=== PATIENT | male | born 1955 | race Caucasian/White ===

== ENCOUNTER → 2020-08-20 14:34 | Outpatient (BNVA) | payer OTHER, SELFPAY | PROVIDERS: Visit Provider Nurse Practitioner Family | DX: Z11.59 Encounter for screening for other viral diseases (principal); Z20.828 Contact with and (suspected) exposure to other viral communicable diseases | CPT/HCPCS: 87635 ==

== ENCOUNTER → 2021-07-01 12:17 | Outpatient (BNVA) | payer OTHER, SELFPAY | PROVIDERS: PCP Emergency Medicine Emergency Medical Services; Visit Provider Nurse Practitioner Family | DX: Z20.828 Contact with and (suspected) exposure to other viral communicable diseases (principal); J06.9 Acute upper respiratory infection, unspecified | CPT/HCPCS: 87635 ==

== ENCOUNTER 2021-07-02 07:58 | Outpatient (CLI) | payer OTHER, SELFPAY ==
--- NOTE | 2021-07-02 08:16 | CT_ITS ---
WS: [id number] CT HEAD WITHOUT AND WITH CONTRAST TECHNIQUE: Noncontrast and contrast-enhanced CT of the head. CLINICAL INFORMATION: MEMORY LOSS COMPARISON: None. DLP: 1984.[address] scans at [facility] use at least one of these dose optimization techniques: automat ed exposure control; mA and/or kV adjustment per patient size (includes targeted exams where dose is matched to clinical indication); or iterative reconstruction. FINDINGS: No evidence of intracranial hemorrhage or mass effect. Ventricular system and basal cisterns are momin nt. Mild small vessel changes. Moderate parenchymal volume loss. No abnormal intracranial enhancement. Mild mucosal thickening ethmoid air cells. Paranasal sinuses ar e otherwise well aerated. Mastoid air cells are well aerated. CT/CT head wo/w con [id number] IMPRESSION: 1. No evidence of intracranial hemorrhage or mass effect. 2. Mild small vessel changes with moderate parenchymal volume loss. 3. No abnormal intracranial enhancement. 4. No other significant findings.
[2021-07-02] MEDS: iohexol 300 mg/mL 100 mL Btl IV (08:34)
== END 2021-07-02 07:59 | disposition home or self-care (01) ==
PROVIDERS: PCP Emergency Medicine Emergency Medical Services; Visit Provider Emergency Medicine Emergency Medical Services
DX: R41.3 Other amnesia (principal)
CPT/HCPCS: 70470; Q9967

== ENCOUNTER → 2021-08-18 12:24 | Outpatient (BNVA) | payer OTHER, SELFPAY | PROVIDERS: PCP Emergency Medicine Emergency Medical Services; Visit Provider Nurse Practitioner | DX: G31.84 Mild cognitive impairment of uncertain or unknown etiology (principal); F07.81 Postconcussional syndrome | CPT/HCPCS: 96116; 99204 ==

== ENCOUNTER → 2022-06-24 08:04 | Outpatient (BNVA) | payer OTHER, SELFPAY | PROVIDERS: PCP Emergency Medicine Emergency Medical Services; Visit Provider Nurse Practitioner | DX: G31.84 Mild cognitive impairment of uncertain or unknown etiology (principal) | CPT/HCPCS: 96116; 99213; 99214 ==

== ENCOUNTER → 2022-07-06 12:47 | Outpatient (BNVA) | payer OTHER, SELFPAY | PROVIDERS: PCP Emergency Medicine Emergency Medical Services; Visit Provider Internal Medicine Cardiovascular Disease | DX: R07.9 Chest pain, unspecified (principal); I10 Essential (primary) hypertension; E78.5 Hyperlipidemia, unspecified; K21.9 Gastro-esophageal reflux disease without esophagitis | CPT/HCPCS: 99204 ==

== ENCOUNTER 2022-09-24 07:01 | Outpatient (CLI) | payer OTHER, SELFPAY ==
[2022-09-24 07:08] VITALS: BMI 31.8
--- NOTE | 2022-09-24 07:19 | ECG_ITS ---
[facility] Test Date: 2022-09-24 Pat Name: Souleymane Hutton Department: Room: Gender: Male Correctional Nurse: Sandra López : 1955 Requested By: Kerrie Choi Order Number: [id number] Emanuel MD: Kerrie Choi M.D. Interpretive Statements NAME OF STUDY: EXERCISE SESTAMIBI STRESS TEST INDICATION: Chest Pain Baseline blood pressure of 155/80 mm Hg, heart rate of 71 beats per minute and oxygen saturation of 96%. EKG showed sinus rhythm, normal axis with poor anterior R wave progression. The patient exercised for 8 minutes 59 seconds on a standard Erick protocol. Patient attained a maximum heart rate of 132 beats per minute(86% of the maximum predicted heart rate) with a blood pressure at the peak exercise of 172/66 mm Hg and oxygen saturation 94%. The EKG at the peak exercise revealed sinus tachycardia with 2-1/2 to 3 mm horizontal to downsloping ST depression in lead II, 3, aVF V3 to V6. Patient did not have any chest pain or any significant arrhythmis with the exercise. The study was terminated due to exertional fatigue. During the recovery phase, there were no new changes. Blood pressure at the end of the recovery phase was 174/82 mm Hg with a heart rate of 86 beats per minute and oxygen saturation 98%. CONCLUSION: 1. Ischemia EKG response to treadmill exercise with 2 and 1/2 to 3 mm horizontal to downsloping ST depression in inferior and anterolateral leads. 2. No exercise-induced chest pain or cardiac arrhythmia 3. Excellent exercise tolerance, attained a maximum of 10.2 METs. 4. Baseline hypertension with normal response to exercise. 5. Perfusion scan will be documented separately. Electronically Signed On 09-26-2022 12:34:20 RECOVERY OPERATOR by Kerrie Choi M.D. [id number]
--- NOTE | 2022-09-24 07:21 | NMCV_ITS ---
NM joe perf SPECT r/s* [id number] Souleymane Hutton Age: 66 Gender: M : 1955 Exam Date: 09/24/2022 07:21 Ordering Phys: Kerrie Choi MD ([email or web address]) Technologist: EDGAR López Exam Location: [facility] Indications: CHEST PAIN STRESS TEST Please see separate stress test report in [facility] for full findings IMAGE PROTOCOL Rest/Stress 1 Exercise Day Radiopharmaceutical Dose (mCi) Administration Site Administered by Rest: Tc-99m 9.8 IV EDGAR Isaacs Sestamibi Stress:Tc-99m 31.5 IV EDGAR Isaacs Sestamibi Rest: 24-Sep-2022 60 Discovery 630 Stress: 24-Sep-2022 30 Discovery 630 Radiopharmaceutical was injected at 85 % maximum heart rate. Images obtained in supine and prone position. SPECT RESULTS Technical Quality: Excellent Raw Data Analysis: Normal Image Corrections: No attenuation or motion correction applied Summed Stress Score: 18 Summed Rest Score: 5 Summed Difference Score: 13 PERFUSION FINDINGS Small sized perfusion abnormality of mild severity of mid to apical anterior and mid anteroseptal wall on rest images with reversibility noted in mid to apical anterior, mid to apical anterolateral, mid to apical anteroseptal hammond on stress images. FUNCTIONAL RESULTS (calculated via Gated SPECT) Stress Image LV EF (%): 53 Stress EDV (mL):96 TID: 1.27 Stress ESV (mL):45 FUNCTIONAL FINDINGS: The left ventricle is normal in size. Transient Ischemia Dilatation of 1.3. The left ventricular ejection fraction is mildly reduced with a value of 53%. There is hypokinesis of mid to apical anterior, septal and apical hammond. IMPRESSIONS 1. Medium sized reversible perfusion abnormality of mid to apical anterior, mid to apical anterolateral and mid to apical anteroseptal hammond. 2. This is suggestive of moderate area of skin of ischemia in left anterior descending artery territory. 3. The left ventricular ejection fraction is mildly reduced with a value of 53%. 3. There is hypokinesis of mid to apical anterior, septal and apical hammond. 4. EKG portion of the study will be reported separately. Kerrie Choi MD (Electronically Signed) Final Date: 25 September 2022 13:21 S
[2022-09-24 09:20] VITALS: BP 174/82; PULSE 85
== END 2022-09-24 07:02 | disposition home or self-care (01) ==
LOC: CDL 07:04
PROVIDERS: PCP Emergency Medicine Emergency Medical Services; Visit Provider Internal Medicine Cardiovascular Disease
DX: R07.9 Chest pain, unspecified (principal); I25.9 Chronic ischemic heart disease, unspecified
CPT/HCPCS: 36415; 78452; 93016; 93017; A9500

== ENCOUNTER 2022-10-13 11:46 | Observation (INO) | payer OTHER, SELFPAY ==
[2022-10-13] VITALS (34 sets, daily range): BP systolic 125–184; BP diastolic 65–104; PULSE 60–87; RESP 12–23; TEMP 36.8–37.1; O2SAT 90–98; BMI 33.1; BMI 33.8
--- NOTE | 2022-10-13 07:30 | XACV_ITS ---
Exam Room: 2 Ht: 163 cm Wt: 88 kg BSA: 2.02 m2 Gender: Male : 1955 Exam Priority: Routine Procedure(s): Procedure Description: Diagnostic procedure Diagnostic Cath Status: Elective Diagnostic Findings * 66-year-old man with past medical history of hypertension, hyperlipidemia, gastroesophageal reflux disease who underwent stress test for worsening chest discomfort. Stress test showed ischemia in left anterior descending/circumflex artery territory. * Angiography shows a right coronary dominant system. * Normal caliber left main with no significant disease. * Left circumflex artery with severe (90-95%)diffuse disease in mid to distal segments. Obtuse marginal branch with severe (80-90%) diffuse disease in proximal segment. Some right to left and left to left collaterals noted. * Proximal to mid LAD with severe 80 to 90% stenosis. Chronic total occlusion of mid left anterior descending artery. * Large right coronary artery with minor luminal irregularities. * Case was discussed and images were reviewed with Dr. Sow. Dr. Sow took over the case at this time. PCI Status: Elective PCI Indication: Other Interventional Findings * PROCEDURE DETAIL: We engaged left main artery with XB 3.0 guide catheter. IV heparin was administered to maintain ACT above 250 s. We advanced 0.014 run-through guidewire into left circumflex artery. It was dilated with 2.5 x 15 mm semicompliant balloon. We then advanced the wire into OM branch and predilated it with 2.5 x 15 mm semicompliant balloon. We then placed 2.75 x 30 mm resolute Bradly drug-eluting stent.This was postdilated with 3.0 x 12 mm NC balloon. At this time angiogram was performed that showed excellent stent expansion and no residual stenosis in left circumflex artery/ OM territory. We then turned our attention to proximal to mid LAD. Run-through guidewire was used to cross critical stenosis of LAD and was put in diagonal artery. We then predilated it with 2.25 x 15 mm semicompliant balloon. We then placed a 2.5 x 18 mm resolute Canby drug-eluting stent and proximal to mid LAD. There was some haziness seen distal to for stent. We then placed 2.75 x 15 mm resolute Bradly drug-eluting stent in mid LAD. Proximal stent was postdilated with 3.0 x 12 mm NC balloon. At this time final angiogram was performed that showed excellent stent expansion, no residual stenosis and GINA-3 flow. Guidewire and guide catheter were removed. Patient left the Dough Panner in a stable condition.. * Proximal Left Anterior Descendin% stenosis treated with a MDT R BRADLY 2.5X18 LUAN, AB TREK 2.25X15 RX BALLOON, and MDT NC EUPHORA RX [id number] BALLOON. 0% residual stenosis, GINA: 3 flow. * Mid Left Anterior Descendin% stenosis treated with a MDT R BRADLY 2.75X15 LUAN. 0% residual stenosis, GINA: 3 flow. * Proximal Circumflex to Mid Circumflex: 70% stenosis treated with a MDT R BRADLY 2.75X30 LUAN. 0% residual stenosis, GINA: 3 flow. * Mid Circumflex to Distal Circumflex: 90% stenosis treated with a Balloon. 0% residual stenosis, GINA: 3 flow. * First Obtuse Marginal Branch Segment: 70% stenosis treated with a MDT NC EUPHORA RX 3.92X70HD BALLOON. 0% residual stenosis, GINA: 3 flow. Conclusions 1. Severe multivessel coronary artery disease. 2. Severe proximal to mid LAD stenosis s/p successful revascularization with LUAN x2. SENIOR MICROSOFT CONSULTANT of mid LAD will be treated medically. 3. Severe mid to distal left circumflex artery stenosis s/p balloon angioplasty. Severe OM stenosis s/p PCI with LUAN x1. Recommendations * Return to inpatient for close monitoring and routine cath care. * Statin and aspirin 81mg lifelong, if tolerated. * Continue Plavix 75mg p.o. daily for at least one year. * High intensity statin therapy. * Outpatient cardiology follow up in 4 weeks. Interventional RX Recommendation: PCI w/o planned CABG Diagnostic RX Recommendation: PCI w/o planned CABG Anticoagulation: Heparin Ventriculography Ejection Fraction: 65.0 % LV EDP: 18 mmHg Left Ventriculography Findings: * Normal left ventricular size and systolic function. * EF 65 %, estimated. Pressures Phase:Rest AO : 149 / 74 ( 99 ) @ 9:29:00 AM 137 / 87 ( 111 ) @ 9:34:00 AM 174 / 76 ( 116 ) @ 9:42:00 AM 153 / 60 ( 95 ) @ 9:42:00 AM 151 / 75 ( 108 ) @ 9:53:00 AM 149 / 73 ( 107 ) @ 10:06:00 AM 115 / 48 ( 78 ) @ 10:26:00 AM 132 / 78 ( 102 ) @ 10:33:00 AM LV : 177 / -7 / 18 @ 9:41:00 AM 182 / -9 / 21 @ 9:42:00 AM 183 / -9 / 22 @ 9:42:00 AM Valves Phase:DefaultPhase AV : 9.0 @ 10:57:47 AM 9.0 @ 10:57:47 AM AV Mean Gradient: 14.0 @ 10:57:47 AM 14.0 @ 10:57:47 AM Clinical Evaluation EBL: 5mL-10mL Procedural Details Procedure Consent Obtained. Admit Source: Out Patient. Pre-Procedure Time Out. Identified patient by full name and date of as verbalized by the patient/guarantor. Does the consent match the physician's order: Yes. Accurate & Complete Informed Consent: Yes. Inpatient/Outpatient History & Physical on Chart: Yes. If H&P is completed, is and addenduem needed: No; If yes, is the addendum complete: N/A. Visualize and Verify Site with Patient/Guarantor: N/A. Relevant Radiology Images available: N/A. The risks, benefits, and alternatives of sedation and/or procedure were discussed by physician. The patient agrees to continue. Procedure started. [facility] Clinical Fraility Score: 3: Managing Well. Dough Panner Indications: Worsening Angina. Chest Pain Symptom Assessment: Typical Angina Symptoms. Cardiovascular Instability: No. Correct patient, site and procedure confirmed by cath team. Current diagnosis: Chest Pain. PERRLA. Strong, equal hand precision inspector bilaterally. Lungs clear x 5 lobes. IV Site on Arrival: 20 gauge in the right anticubital. Pre Procedural Pulses: bilateral radial was 3+. Pre Procedural Pulses: bilateral posterior tibial was 3+. Pre Procedural Pulses: bilateral dorsalis pedis was 3+. Oxygen started at 2liters/min via nasal canula. right groin was prepped with chloroprep then draped in the usual sterile fashion. right radial was prepped with chloroprep then draped in the usual sterile fashion. Physician notified. Baseline sample Acquired. HR: 72 BPM. Physician arrived. Physician scrubbed in. Immediate Pre-Procedure Time Out. Correct Patient: Yes; Correct Procedure: Yes; Correct Site: Yes; Correct Patient Position: Yes; Correct Supplies: Yes; Dried Flammable Prep: Yes; Blood Products Available: N/A;. Lidocaine 1% infiltrated to the right radial. Arterial access obtained. A 5 filipino TIG catheter in over wire. Multiple views taken of left coronary artery. Catheter redirected to the RCA. Multiple views taken of right coronary artery. attempt to cross the valve. dr sow called to view films. Catheter removed over the standard wire. A 6 filipino Angled Pig catheter in over wire. Physician review of cine films. EDP Sample taken: LV 177/-8,18; HR: 80 BPM; SpO2: 97%. LV gram performed in HERRERA @ 10 mL/second for a total of 30 mL. EDP Sample taken: LV 182/-10,21; HR: 79 BPM; SpO2: 97%. Pullback taken: LV 183/-10,22; AO 174/76(116); Mean: 14mmHg, Peak to Peak: 9mmHg, SEP: 24sec/min; HR: 76 BPM; SpO2: 97%. Catheter removed over the standard wire. sheath flused with heparinized saline. Physician arrived. dr santana srubbed out. sheath flushed with heparinized saline. Dr Sow scrubbed in. 6 filipino XB 3 guide catheter was inserted over the wire. Multiple views taken of left coronary artery. Runthrough guidewire was advanced through the guide catheter to lesion in the mid Circ. Inflation number : 1 A AB TREK 2.50X15 RX BALLOON was prepped and advanced across the Mid CX , then inflated to 8 AURY for 0:16 seconds. Inflation number: 2 The AB TREK 2.50X15 RX BALLOON was reinflated across the Mid CX, to 8 AURY for 0:12 seconds. Inflation number: 3 The AB TREK 2.50X15 RX BALLOON was reinflated across the Mid CX, to 12 AURY for 0:14 seconds. Results checked. Balloon out. Runthrough repositioned to OM. Balloon inserted to lesion in the OM. Inflation number: 1 The AB TREK 2.50X15 RX BALLOON was reinflated across the OM, to 12 AURY for 0:12 seconds. Inflation number: 2 The AB TREK 2.50X15 RX BALLOON was reinflated across the OM to 8 AURY for 0:11 seconds. Inflation number: 3 The AB TREK 2.50X15 RX BALLOON was reinflated across the OM to 12 AURY for 0:07 seconds. Balloon out. results checked. Inflation Number : 1 A MDT R BRADLY 2.75X30 LUAN -Lot Number#[id number] exp date10/20/2024 was prepped and advanced across the Prox CX1. The stent was deployed at 12 AURY for 0:25 seconds. Stent balloon and wire out. Inflation number : 1 A MDT NC EUPHORA RX 3.25J65HH BALLOON was prepped and advanced across the 1st Ob Kateryna , then inflated to 12 AURY for 0:10 seconds. Inflation number: 2 The MDT NC EUPHORA RX 3.38D90HR BALLOON was reinflated across the 1st Ob Kateryna, to 12 AURY for 0:05 seconds. Inflation number: 3 The MDT NC EUPHORA RX 3.95Z59OL BALLOON was reinflated across the 1st Ob Kateryna, to 12 AURY for 0:07 seconds. Results checked. Runthrough repositioned to diaganol. Wire out to reshape tip. Runthrough repositioned to diaganol. Balloon out. Inflation number : 3 A AB TREK 2.25X15 RX BALLOON was prepped and advanced across the Prox LAD , then inflated to 8 AURY for 0:11 seconds. Inflation number: 2 The AB TREK 2.25X15 RX BALLOON was reinflated across the Prox LAD, to 8 AURY for 0:21 seconds. results checked. Balloon out. Inflation Number : 1 A MDT R BRADLY 2.5X18 LUAN -Lot Number# [id number] exp date 09/15/2024 was prepped and advanced across the Prox LAD. The stent was deployed at 14 AURY for 0:22 seconds. Stent balloon and wire out. Inflation number: 4 The MDT NC EUPHORA RX 3.53P11HG BALLOON was reinflated across the Prox LAD, to 14 AURY for 0:17 seconds. Balloon out. Results checked. Wire out. Runthrough guidewire was advanced through the guide catheter to lesion in the diaganol. wire out to reshape tip. Runthrough guidewire was advanced through the guide catheter to lesion in the diaganol. Inflation Number : 1 A BRITNI Smith BRADLY 2.75X15 LUAN -Lot Number# [id number] exp date 04/23/2024 was prepped and advanced across the Mid LAD. The stent was deployed at 12 AURY for 0:24 seconds. Inflation number: 2 The stent balloon was then re-inflated across the Mid LAD to 14 AURY for 0:10 seconds. Stent balloon out over wire. Results checked. Wire out. Results checked. ACT drawn. Results 284 seconds. Therapeutic limits - pre-heparin administration 90-150 seconds and monitoring heparin during a vascular procedure >250 seconds. Guide catheter out. A TR Band was successful obtaining hemostatsis at the Right Radial artery insertion site. PERRLA. Strong, equal hand precision inspector bilaterally. No VTE prophylaxis required. Medication's Wasted: Lidocaine 1% = 2 mg. Medication's Wasted: Nitro = 49.8 mg. Medication's Wasted: Heparin = 3000 units. Total IV fluids: 100 mL. PCI Indication: New Onset Angina. Post-op diagnosis: multi vessel stent placement. Complications: none. Estimated blood loss: 5mL-10mL. Responsiveness - Normal response to verbal stimuli; alert and oriented, PERRLA. Airway - Unaffected, no intervention required; spontaneous ventilation. Circulation: W/N/L, pulses unchanged. Nausea/Vomiting: No. Procedure completed. Patient transferred by wheelchair to CPRU. Vital chart was stopped. Access Site Site: Right Radial artery Sheath Size: 6 Fr Hemostasis Method: TR Band Hemostasis Success: Successful Procedure Medications Start: 9:21 AM Stop: 9:21 AM Medication: Versed Amount: 1 mg Route: I.V. Start: 9:21 AM Stop: 9:21 AM Medication: Fentanyl Amount: 50 mcg Route: I.V. Start: 9:24 AM Stop: 9:24 AM Medication: Versed Amount: 1 mg Route: I.V. Start: 9:24 AM Stop: :24 AM Medication: Fentanyl Amount: 50 mcg Route: I.V. Start: 9:26 AM Stop: 9: AM Medication: Benadryl Amount: 25 mg Route: I.V. Start: 9: AM Stop: : AM Medication: Nitrogylcerin Amount: 200 mcg Route: I.A. Start: 9:29 AM Stop: 9:29 AM Medication: Heparin Amount: 5000 units Route: I.V. Start: 10:00 AM Stop: 10:00 AM Medication: Heparin Amount: 4000 units Route: I.V. Start: 10:06 AM Stop: 10:06 AM Medication: Heparin Amount: 2000 units Route: I.V. Start: 10:07 AM Stop: 10:07 AM Medication: Benadryl Amount: 25 mg Route: I.V. Start: 10:17 AM Stop: 10:17 AM Medication: Heparin Amount: 1000 units Route: I.V. Start: 10:31 AM Stop: 10:31 AM Medication: Nitrogylcerin Amount: 200 mcg Route: I.C. Start: 10:31 AM Stop: 10:31 AM Medication: Heparin Amount: 1000 units Route: I.V. Start: 10:47 AM Stop: 10:47 AM Medication: Plavix Amount: 300 mg Route: P.O. I, the attending physician, have reviewed and verified all procedure medications. Yes, all medications given per verbal order History/Risk Factors Hypertension: Yes Dyslipidemia: Yes Peripheral Arterial Disease (PAD): No Myocardial Infarction (WI): No Obesity: No Tobacco Use: Never Prior Interventions PCI: No CABG: No Valve Surgery: No Report Signatures Interventional Workflow Finalized by Milton Sow MD on 10/26/2022 05:35 PM Diagnostic Workflow Finalized by Kerrie Santana MD on 10/22/2022 02:28 PM
[2022-10-13 07:49] LABS: Basophils % 0.4 %; Eosinophils # 0.2 10^3/uL (0.0-0.8); Eosinophils % 3.4 %; Hematocrit 46.2 % (42.0-52.0); Hemoglobin 15.9 g/dL (11.7-16.6); Lymphocytes # 2.2 10^3/uL (0.8-4.8); Lymphocytes % 31.1 %; Mean Corpuscular HGB Conc 34.4 g/dL (30.0-36.0); Mean Corpuscular Hemoglobin 32.6 pg (28.0-34.0); Mean Corpuscular Volume 94.9 fl (80-94); Mean Platelet Volume 9.8 fL (7.4-10.4); Monocytes # 0.7 10^3/uL (0.2-0.9); Monocytes % 9.6 %; Neutrophils # 3.81 10^3/uL (1.8-7.7); Neutrophils % 54.8 %; Nucleated Red Blood Cells % 0 %; Platelet Count 188 10^3/cmm (130-400); Red Blood Count 4.87 10^6/uL (4.1-5.3); Red Cell Distribution Width 12.4 % (12.1-15.1)
[2022-10-13 08:06] LABS: Anion Gap 15.9 (5-19); Blood Urea Nitrogen 15 mg/dL (8-23); Carbon Dioxide 25 mmol/L (22-29); Chloride 101 mmol/L (98-107); Glomerular Filtration Rate 83.9 mL/min (90-130); Glucose 99 mg/dL (65-115); Osmolality Calculated 287 mOsm/kg (285-295); Potassium 3.9 mmol/L (3.5-5.1); Sodium 138 mmol/L (136-145)
[2022-10-13] MEDS: diphenhydrAMINE 50 mg Capsule PO (08:20)
--- NOTE | 2022-10-13 09:19 | P.HP_ITS ---
Same Day Surgery H&P Indication for Procedure/HPI DATE OF PROCEDURE: October 13, 2022 CHIEF COMPLAINT/INDICATIONFOR SURGICAL PROCEDURE: Chest pain PREOP DIAGNOSIS: Chest pain, abnormal stress test PLANNED PROCEDURE: Operation Date: 10/13/22 08:[address] [facility] w/wo [id number] R07.9,R94.39(Left) - Kerrie Choi MD 66 year old male with PMHx of HTN, GERD, HLD, h/o COVID-19 PNA in . He was initially seen in office with complains of chest pain with exertion. He used to be pretty active but recently has been feeling somewhat better. Mother with h/o RHD. Labs (12/30/21): LDL 175, Tg 199, HDL 46, TC 260, Cr-1.19, potassium 4.2, ALT 30, AST 46. EKG showed sinus rhythm, LAFB. Poor anterior R wave progression. Stress test with ischemia in LAD/LCx artery territory. He is here for outpatient [facility] for worsening chest pains and abnormal stress test. Medications/Allergies* Home Medications Medication Instructions Recorded Confirmed Type cholecalciferol (vitamin D3) 250 250 mcg PO DAILY 07/01/21 10/13/22 History mcg (10,000 unit) capsule hydrochlorothiazide 25 mg tablet 25 mg PO DAILY 07/01/21 10/13/22 History lisinopril 20 mg tablet 20 mg PO DAILY 07/01/21 10/13/22 History Allergies/Adverse Reactions Allergy/AdvReac Type Severity Reaction Status Date / Time No Known Allergies Allergy Verified 10/13/22 08:49 Current Medications: Generic Name Dose Route Start Last Admin Trade Name Freq PRN Reason Stop Dose Admin Sodium Chloride 1,000 mls @ 50 mls/hr 10/13/22 07:30 10/13/22 07:30 Sodium Chloride 0.9% IV 10/14/22 03:29 Not Given .Q20H ONE Pertinent History/Comorbid Conditions* Medical History (Updated 07/06/22 @ 13:10 by Kerrie Choi MD) Chronic traumatic encephalopathy GERD (gastroesophageal reflux disease) HTN (hypertension) with goal to be determined Hyperlipidemia Surgical History (Updated 07/06/22 @ 13:10 by Kerrie Choi MD) S/P ear surgery S/P hernia surgery Family History (Updated 07/06/22 @ 13:04 by Melody Helm RN) Mother CAD (coronary artery disease) Mother Rheumatic fever Mother Social History Smoking and tobacco status: never smoked Alcohol intake: current History of recent travel: No Pertinent Exam Findings alert, oriented x 3, clear to auscultation bilaterally and regular rate & rhythm Conscious Sedation Assessment PATIENT ASSESSED PRIOR TO SEDATION, WITH NO CHANGE NOTED: Yes AIRWAY EVAL/ANESTHESIA PLAN: normal airway, ASA III, Monitored Anesthesia, Local Anesthesia, Risks, benefits & alternatives of sedation and/or procedure discussed and Patient agrees to continue as planned Recommendations Surgery/Procedure today Coding Level of Care Code Acute Cloth Roll Winder for Wellington Bueno
--- NOTE | 2022-10-13 11:35 | SUR.PHASEI ---
Received patient back from the wheelabrator operator via wheelchair s/p PCI. Patient ambulated to the cot. Alert and oriented x 3. Significant other and Dr. Sow at bedside. Automobile Seat Cover Installer placed and vital signs obtained. TR band intact to the right wrist with no bleeding or hematoma noted. palpable radial pulse. No other assessment changes noted from pre cath assessment. Will transfer to CSU room 103 shortly.
--- NOTE | 2022-10-13 11:52 | SUR.PHASEI ---
Patient to room 103 via wheelchair. Bedside report to LUL Hearn.
[2022-10-13] MEDS: sodium chloride 0.9% 1,000 ML 100 ML IV ×2 (13:33→21:31)
[2022-10-13] MEDS: amlodipine 5 mg Tablet PO (18:12)
[2022-10-14 03:25] LABS: Basophils % 0.4 %; Eosinophils # 0.2 10^3/uL (0.0-0.8); Eosinophils % 2.5 %; Hematocrit 39.4 % (42.0-52.0); Hemoglobin 13.5 g/dL (11.7-16.6); Lymphocytes # 1.9 10^3/uL (0.8-4.8); Lymphocytes % 27.7 %; Mean Corpuscular HGB Conc 34.3 g/dL (30.0-36.0); Mean Corpuscular Hemoglobin 32.7 pg (28.0-34.0); Mean Corpuscular Volume 95.4 fl (80-94); Mean Platelet Volume 9.6 fL (7.4-10.4); Monocytes # 0.7 10^3/uL (0.2-0.9); Monocytes % 10.4 %; Neutrophils # 3.98 10^3/uL (1.8-7.7); Neutrophils % 58.4 %; Nucleated Red Blood Cells % 0 %; Platelet Count 177 10^3/cmm (130-400); Red Blood Count 4.13 10^6/uL (4.1-5.3); Red Cell Distribution Width 12.4 % (12.1-15.1); White Blood Count 6.8 10^3/uL (4.0-10.0)
[2022-10-14 03:44] LABS: Anion Gap 11.9 (5-19); Blood Urea Nitrogen 17 mg/dL (8-23); Calcium 9.1 mg/dL (8.5-10.5); Carbon Dioxide 25 mmol/L (22-29); Chloride 107 mmol/L (98-107); Glomerular Filtration Rate 83.9 mL/min (90-130); Glucose 102 mg/dL (65-115); Osmolality Calculated 292 mOsm/kg (285-295); Potassium 3.9 mmol/L (3.5-5.1); Sodium 140 mmol/L (136-145)
[2022-10-14 03:52] VITALS: BP 139/63; PULSE 65; RESP 14; TEMP 36.3; O2SAT 96
[2022-10-14 05:20] VITALS: PULSE 62
[2022-10-14 07:14] VITALS: BP 116/52; PULSE 68; RESP 15; TEMP 37.1; O2SAT 96
--- NOTE | 2022-10-14 08:35 | PC.CHAP ---
Pastoral Care Encounter/Spiritual Assessment Type of Contact [] Declined transportation director visit [] Patient/Family/Request visit [] Outpatient visit [] Follow-up visit [] Physician referral [] Code/Alert [x] Routine visit [] Staff referral [] Actively dying [] Patient sleeping [] Family support [] [] Out of room [] Palliative care [] [] Receiving care in room [] Pre-surgical visit [] Trauma [] Long length of stay [] ICU visit [] Other: Relational/Emotional Strength [x] Patient feels connected with others/family/visitors/staff [] Distress [] Loneliness/isolation [] Abandonment Spirituality of Patient [] Person of Radha [] Attends Hinduism of their Radha [] Believes in Prayer [] Reads Bible or Yazdanism materials [x] There are Spiritual issues to be addressed Bond Analyst Interventions [] Prayer [x] Active listening [x] Non-anxious presence [x] Spiritual/emotional support [] Crisis/trauma care [] Spiritual counseling [] Bereavement support [] Provided bereavement packet [] Provided Bible/devotional materials [] Provided toy/stuffed animal, coloring book to patient or family member [] Provided Communion [] Anointing/[place] [] Salvation [x] Completed spiritual assessment [] Other: Impact on Illness or Injury [] Angry [] Fearful [] Anxious [] Often cries [] Exhaustion [] Unable to work [] Unable to attend druze [] Unable to walk/stand [] Unable to read [] Unable to drive [] Unable to eat/drink [] Unable to sleep [] Unable to be with family [] Patient intubated [] Other: Summary Pt's SO was present Time spent with patient 10m
--- NOTE | 2022-10-14 08:47 | PM.DCS ---
Discharge Providers Date of Admission: 10/13/22 11:46 Date of Discharge: October 14, 2022 Attending Provider at Admission: Kerrie Choi MD Attending Provider at Discharge: Kerrie Choi MD Primary Care Provider: Lance Orozco DO Reason for Visit Reason for Visit: R07.9 chest pain, unspecified Brief History: 66 year old male with PMHx of HTN, GERD, HLD, h/o COVID-19 PNA in . He was initially seen in office with complains of chest pain with exertion. He used to be pretty active but recently has been feeling somewhat better. Mother with h/o RHD. Labs (12/30/21): LDL 175, Tg 199, HDL 46, TC 260, Cr-1.19, potassium 4.2, ALT 30, AST 46. EKG showed sinus rhythm, LAFB. Poor anterior R wave progression. Stress test with ischemia in LAD/LCx artery territory. He was admitted for outpatient LHC for worsening chest pains and abnormal stress test. Hospital Course Hospital Course He underwent LHC via right radial access and was found to have [employer] mid LAD and severe disease in mid to distal LCX and OM branch. He underwent 2 LUAN's to px to mid LAD and another LUAN to OM and balloon angioplasty of mid to distal LCx. He tolerated the procedure well. Few episodes of bradycardia noted on telemetry with HR dropping to 48 during night. Advised to keep BP/HR log. Physical Exam Narrative: GENERAL: Averagely built and averagely nourished in no acute distress HEENT: Extraocular movement intact. Pupils equal round reactive to light. No pallor or icterus. NECK: central trachea, [] JVD, [] abdominojugular reflex. No carotid bruit. CARDIOVASCULAR SYSTEM: S1-S2 regular. No S3 or S4 present. [No murmur rubs or gallops.] RESPIRATORY SYSTEM: Chest clear to auscultation. No wheezes rhonchi or rubs heard. [] No use of accessory muscles. ABDOMEN: Soft, nontender and nondistended. Normal bowel sounds present. No hepatosplenomegaly appreciated. [] EXTREMITIES: No cyanosis or clubbing. [No edema]. No signs of chronic venous insufficiency. [employer] M[employer] WORKER: Patient is alert oriented ?3. No focal neurological deficits. Cranial nerves intact. [] SKIN: Normal turgor and temperature. No breakdown, rash or nail changes noted. [] PSYCH: Normal insight and judgment. No suicidal or homicidal ideations. Discharge Data Studies Completed and Pending Pending at discharge Category Date Time Status OPERATING ROOM TECHNICIAN request for service Routine Exams 10/13/22 07:30 Taken Laboratory Results WBC 6.8 10^3/uL (4.0-10.0) 10/14/22 03:01 RBC 4.13 10^6/uL (4.1-5.3) 10/14/22 03:01 Hgb 13.5 g/dL (11.7-16.6) 10/14/22 03:01 Hct 39.4 % (42.0-52.0) L 10/14/22 03:01 MCV 95.4 fl (80-94) H 10/14/22 03:01 MCH 32.7 pg (28.0-34.0) 10/14/22 03:01 MCHC 34.3 g/dL (30.0-36.0) 10/14/22 03:01 RDW 12.4 % (12.1-15.1) 10/14/22 03:01 Plt Count 177 10^3/cmm (130-400) 10/14/22 03:01 MPV 9.6 fL (7.4-10.4) 10/14/22 03:01 Neut % (Auto) 58.4 % 10/14/22 03:01 Lymph % (Auto) 27.7 % 10/14/22 03:01 [place] % (Auto) 10.4 % 10/14/22 03:01 Eos % (Auto) 2.5 % 10/14/22 03:01 Baso % (Auto) 0.4 % 10/14/22 03:01 Neut # (Auto) 3.98 10^3/uL (1.8-7.7) 10/14/22 03:01 Lymph # (Auto) 1.9 10^3/uL (0.8-4.8) 10/14/22 03:01 Gladwin # (Auto) 0.7 10^3/uL (0.2-0.9) 10/14/22 03:01 Eos # (Auto) 0.2 10^3/uL (0.0-0.8) 10/14/22 03:01 Baso # (Auto) 0.0 10^3/uL (0.0-0.1) 10/14/22 03:01 Nucleated RBC % (auto) 0 % 10/14/22 03:01 Nucleated RBCs # 0.0 /100WBC 10/14/22 03:01 Sodium 140 mmol/L (136-145) 10/14/22 03:01 Potassium 3.9 mmol/L (3.5-5.1) 10/14/22 03:01 Chloride 107 mmol/L (98-107) 10/14/22 03:01 Carbon Dioxide 25 mmol/L (22-29) 10/14/22 03:01 Anion Gap 11.9 (5-19) 10/14/22 03:01 BUN 17 mg/dL (8-23) 10/14/22 03:01 Creatinine 0.9 mg/dL (0.7-1.2) 10/14/22 03:01 GFR Calculation 83.9 mL/min (90-130) L 10/14/22 03:01 Glucose 102 mg/dL (65-115) 10/14/22 03:01 Calculated Osmolality 292 mOsm/kg (285-295) 10/14/22 03:01 Calcium 9.1 mg/dL (8.5-10.5) 10/14/22 03:01 Vitals Last Vital Signs Temp 98.8 F 10/14/22 07:14 Pulse 68 10/14/22 07:14 Resp 15 10/14/22 07:14 BP 116/52 10/14/22 07:14 Pulse Ox 96 10/14/22 07:14 O2 Del Method 10/14/22 07:14 Discharge Plan Discharge Patient Disposition: Home Condition: Stable Prescriptions: New amlodipine 5 mg Tablet 5 mg PO DAILY Qty: 30 3RF Continued lisinopril 20 mg tablet 20 mg PO DAILY cholecalciferol (vitamin D3) 250 mcg (10,000 unit) capsule 250 mcg PO DAILY galantamine 8 mg capsule,ext rel. pellets 24 hr 8 mg PO QAM Qty: 30 0RF Rx Instructions: administer with breakfast aspirin [Adult Low Dose Aspirin] 81 mg tablet,delayed release (DR/EC) 81 mg PO DAILY Qty: 90 0RF nitroglycerin [Nitrostat] 0.4 mg tablet, sublingual 0.4 mg sublingual Q5M PRN (Reason: chest pain) Qty: 25 0RF Rx Instructions: do not exceed 3 doses per episode atorvastatin 40 mg tablet 40 mg PO DAILY Qty: 90 3RF isosorbide mononitrate 30 mg tablet extended release 24 hr 30 mg PO DAILY Qty: 90 3RF clopidogrel 75 mg tablet 75 mg PO DAILY Qty: 90 2RF Discontinued hydrochlorothiazide 25 mg tablet 25 mg PO DAILY Discharge Orders: Discharge Order (Routine); Ordered 10/14/22 Ordered By: Kerrie Choi Other Ambulatory Orders: Basic Metabolic Panel (Routine) Timeframe: 1 Week Facility: [facility] - Location: Lab - Main Lab Ordered By: Kerrie Choi Referrals: Kristel Christian FNP [Nurse Practitioner] - 10/22/22 10:00 am (Please follow-up with Kristel Christian on Oct.22 at 10:00A.M. If you have any questions or need to reschedule. Please call ) Kerrie Choi MD [Physician] - 2 months (During your appointment with Kristel Christian you will be scheduled for follow-up with Dr. Choi. ) Discharge Diet: Cardiac Discharge Activity: Limit activity as instructed Patient Instructions: Amlodipine (By mouth), Coronary Angioplasty (DC), Opioid Safety, Post Angiogram Home Care Instructions Activity Restrictions/Additional Instructions: Do not lift anything more than 5 lbs for 1 week. Keep the site dry and clean Take medications as prescribed and follow up as scheduled. Blood pressure and heart rate log x 2 weeks Discharge Attestations Time Spent in Discharge Care*: greater than 30 min Specific Discharge Activities: educating patient, educating and/or supporting family/caregiver, documenting/other paperwork and evaluating patient/reviewing data Status at Discharge: Cognitive status at discharge: cognitively intact, Behavioral status at discharge: cooperative, Functional status at discharge: independent ambulation, Overall status at discharge: patient is back to baseline Quality Metrics Clinical Quality Measures [ No reported AMI, CVA or VTE this stay] Coding Level of Care Code Acute Chg FW DC note
[2022-10-14] MEDS: aspirin 81 mg EC Tablet PO (09:19)
[2022-10-14] MEDS: atorvastatin 40 mg Tablet PO (09:20)
[2022-10-14] MEDS: amlodipine 5 mg Tablet PO (09:20)
[2022-10-14] MEDS: lisinopril 20 mg Tablet PO (09:20)
[2022-10-14] MEDS: clopidogrel 75 mg Tablet PO (09:20)
[2022-10-14] MEDS: isosorbide mononitrate ER 30 mg Tablet PO (09:20)
[2022-10-14 10:22] VITALS: BP 116/52; PULSE 68; RESP 15; TEMP 37.1; O2SAT 96
--- NOTE | 2022-10-14 10:26 | PC.NURSE ---
Patient educated on post angiogram instructions, follow up appointments and medications. IV removed. Patient vs stable upon departure.
== END 2022-10-14 10:27 | disposition home or self-care (01) ==
LOC: CSU 11:46
PROVIDERS: Internal Medicine; Admitting Provider Internal Medicine Cardiovascular Disease; PCP Emergency Medicine Emergency Medical Services; Visit Provider Internal Medicine Cardiovascular Disease
DX: I25.10 Atherosclerotic heart disease of native coronary artery without angina pectoris (principal); R07.9 Chest pain, unspecified; R94.39 Abnormal result of other cardiovascular function study; Z86.16 Personal history of COVID-19; I10 Essential (primary) hypertension; K21.9 Gastro-esophageal reflux disease without esophagitis; E78.5 Hyperlipidemia, unspecified
CPT/HCPCS: 36415; 80048; 85025; 85347; 93458; 96361; 96365; 99152; 99153; C1725; C1769; C1874; C1887; C1894; C9600; G0378; J1200; J1644; J2250; J3010; J3490; J7030; Q0163; Q9967

== ENCOUNTER → 2022-10-22 11:12 | Outpatient (BNVA) | payer OTHER, SELFPAY | PROVIDERS: PCP Emergency Medicine Emergency Medical Services; Visit Provider Nurse Practitioner Family | DX: I25.10 Atherosclerotic heart disease of native coronary artery without angina pectoris (principal); I10 Essential (primary) hypertension | CPT/HCPCS: 36415; 80048; 99214 ==

== ENCOUNTER → 2023-01-11 10:03 | Outpatient (BNVA) | payer OTHER, SELFPAY | PROVIDERS: PCP Emergency Medicine Emergency Medical Services; Visit Provider Nurse Practitioner Family | DX: I25.10 Atherosclerotic heart disease of native coronary artery without angina pectoris (principal); I10 Essential (primary) hypertension | CPT/HCPCS: 99214 ==

== ENCOUNTER → 2023-07-05 10:29 | Outpatient (BNVA) | payer OTHER, SELFPAY | PROVIDERS: PCP Emergency Medicine Emergency Medical Services; Visit Provider Internal Medicine Cardiovascular Disease | DX: I25.10 Atherosclerotic heart disease of native coronary artery without angina pectoris (principal); I10 Essential (primary) hypertension; E78.5 Hyperlipidemia, unspecified | CPT/HCPCS: 99214 ==

== ENCOUNTER 2023-09-10 07:35 | Outpatient (CLI) | payer OTHER, SELFPAY ==
--- NOTE | 2023-09-10 07:42 | CT_ITS ---
WS: [id number] CT LUMBAR SPINE TECHNIQUE: Noncontrast CT of the lumbar spine with coronal and sagittal reformatted images. CLINICAL INFORMATION: Pain COMPARISON: None. DLP: 789.[address] scans at [facility] use at least one of these dose optimization techniques: automated e xposure control; mA and/or kV adjustment per patient size (includes targeted exams where dose is matc hed to clinical indication); or iterative reconstruction. FINDINGS: Mild lumbar curve. No acute compression. Moderate spondylitic changes lumbar spine. Anterior hypertro phic changes lower thoracic and upper lumbar spine. Disc osteophyte complexes throughout the lumbar s pine. Adrenal glands are normal. Lung bases are well aerated. L1-L2: No significant disc bulging. Spinal canal and foramen are patent. Mild facet arthropathy. L2-L3: Central disc osteophyte protrusion. Moderate to severe central canal stenosis with indentation on the subarticular recess. Prominent epidural fat contributes to stenosis. Moderate facet arthropat hy ligamentum flavum hypertrophy. Mild bilateral foraminal narrowing RIGHT greater than LEFT. L3-L4: Disc osteophyte protrusion with indentation on the thecal sac and subarticular recess. Moderat e to severe narrowing of the thecal sac. Prominent epidural fat. Moderate facet arthropathy and ligam entum flavum hypertrophy. Moderate bilateral foraminal narrowing. L4-L5: Disc osteophyte protrusion with moderate to severe narrowing of the thecal sac. Prominent epid ural fat. Moderate facet arthropathy with ligamentum flavum hypertrophy. Moderate to severe bilateral foraminal narrowing impinges the exiting L4 nerve roots. L5-S1: Central disc osteophyte protrusion with indentation on the traversing S1 nerve roots bilateral ly. Moderate facet arthropathy. Moderate LEFT greater than RIGHT foraminal narrowing. Visualized pelvic bony structures: Normal. Paravertebral soft tissues: Normal. IMPRESSION: 1. Mild lumbar curve. Moderate spondylitic changes with disc osteophyte complexes throughout the lum bar spine. Disc space narrowing worse at L4-5. 2. Moderate to severe narrowing of the thecal sac at L2-L3 L3-L4 and L4-L5 due to disc osteophyte pr otrusions with indentation on the ventral thecal sac and subarticular recess at these levels. Promine nt epidural fat in combination with moderate facet arthropathy and ligamentum flavum hypertrophy cont ributes to stenosis at these levels. 3. Moderate to severe bilateral foraminal narrowing L4-5. Moderate LEFT greater than RIGHT foraminal narrowing L5-S1.
== END 2023-09-10 07:36 | disposition home or self-care (01) ==
LOC: RAD 07:36
PROVIDERS: PCP Emergency Medicine Emergency Medical Services; Visit Provider Emergency Medicine Emergency Medical Services
DX: M47.817 Spondylosis without myelopathy or radiculopathy, lumbosacral region (principal); M25.78 Osteophyte, vertebrae; M48.07 Spinal stenosis, lumbosacral region
CPT/HCPCS: 72131

== ENCOUNTER → 2023-12-14 09:58 | Outpatient (BNVA) | payer OTHER, SELFPAY | PROVIDERS: PCP Emergency Medicine Emergency Medical Services; Referring Provider Emergency Medicine Emergency Medical Services; Visit Provider Specialist | DX: G47.10 Hypersomnia, unspecified (principal); G31.84 Mild cognitive impairment of uncertain or unknown etiology; I10 Essential (primary) hypertension | CPT/HCPCS: 99215 ==

== ENCOUNTER → 2024-01-12 10:49 | Outpatient (BNVA) | payer OTHER, SELFPAY | PROVIDERS: PCP Emergency Medicine Emergency Medical Services; Visit Provider Nurse Practitioner Family | DX: I25.10 Atherosclerotic heart disease of native coronary artery without angina pectoris (principal); I10 Essential (primary) hypertension | CPT/HCPCS: 99214 ==

== ENCOUNTER 2024-03-06 20:00 | Outpatient (CLI) | payer OTHER, SELFPAY | END 2024-03-06 20:01 | disposition home or self-care (01) | LOC: SLEEP 03-07 04:37 | PROVIDERS: PCP Emergency Medicine Emergency Medical Services; Visit Provider Emergency Medicine Emergency Medical Services | DX: G47.10 Hypersomnia, unspecified (principal) | CPT/HCPCS: 95810 ==

== ENCOUNTER 2024-05-09 20:00 | Outpatient (CLI) | payer OTHER, SELFPAY | END 2024-05-09 20:01 | disposition home or self-care (01) | LOC: SLEEP 05-10 04:14 | PROVIDERS: PCP Emergency Medicine Emergency Medical Services; Visit Provider Emergency Medicine Emergency Medical Services | DX: G47.33 Obstructive sleep apnea (adult) (pediatric) (principal); Z99.89 Dependence on other enabling machines and devices | CPT/HCPCS: 95811 ==

== ENCOUNTER → 2024-06-14 11:42 | Outpatient (BNVA) | payer OTHER, SELFPAY | PROVIDERS: PCP Emergency Medicine Emergency Medical Services; Visit Provider Specialist | DX: G47.10 Hypersomnia, unspecified (principal); G31.84 Mild cognitive impairment of uncertain or unknown etiology; G47.33 Obstructive sleep apnea (adult) (pediatric); G43.711 Chronic migraine without aura, intractable, with status migrainosus; G37.9 Demyelinating disease of central nervous system, unspecified; H93.19 Tinnitus, unspecified ear | CPT/HCPCS: 96116; 99214 ==

== ENCOUNTER → 2024-07-13 13:03 | Outpatient (BNVA) | payer OTHER, SELFPAY | PROVIDERS: PCP Emergency Medicine Emergency Medical Services; Visit Provider Internal Medicine | DX: I25.10 Atherosclerotic heart disease of native coronary artery without angina pectoris (principal); I10 Essential (primary) hypertension; K21.9 Gastro-esophageal reflux disease without esophagitis; E78.5 Hyperlipidemia, unspecified; F07.81 Postconcussional syndrome | CPT/HCPCS: 99214 ==

== ENCOUNTER → 2024-09-13 14:45 | Outpatient (BNVA) | payer OTHER, SELFPAY | PROVIDERS: PCP Emergency Medicine Emergency Medical Services; Visit Provider Specialist | DX: G47.10 Hypersomnia, unspecified (principal); G31.84 Mild cognitive impairment of uncertain or unknown etiology; G47.33 Obstructive sleep apnea (adult) (pediatric); G43.711 Chronic migraine without aura, intractable, with status migrainosus; G37.9 Demyelinating disease of central nervous system, unspecified; H93.19 Tinnitus, unspecified ear | CPT/HCPCS: 99212; G0463 ==

== ENCOUNTER → 2024-12-06 15:21 | Outpatient (BNVA) | payer OTHER, SELFPAY | PROVIDERS: PCP Emergency Medicine Emergency Medical Services; Visit Provider Specialist | DX: G31.84 Mild cognitive impairment of uncertain or unknown etiology (principal); G47.33 Obstructive sleep apnea (adult) (pediatric); G43.711 Chronic migraine without aura, intractable, with status migrainosus; G37.9 Demyelinating disease of central nervous system, unspecified; H93.19 Tinnitus, unspecified ear | CPT/HCPCS: 99214 ==

== ENCOUNTER → 2025-01-05 10:09 | Outpatient (BNVA) | payer OTHER, SELFPAY | PROVIDERS: PCP Emergency Medicine Emergency Medical Services; Visit Provider Internal Medicine | DX: I25.10 Atherosclerotic heart disease of native coronary artery without angina pectoris (principal); I10 Essential (primary) hypertension; K21.9 Gastro-esophageal reflux disease without esophagitis; E78.5 Hyperlipidemia, unspecified; F07.81 Postconcussional syndrome | CPT/HCPCS: 99214 ==

== ENCOUNTER → 2025-09-27 12:51 | Outpatient (BNVA) | payer OTHER, SELFPAY | PROVIDERS: PCP Emergency Medicine Emergency Medical Services; Visit Provider Internal Medicine | DX: I25.10 Atherosclerotic heart disease of native coronary artery without angina pectoris (principal); I10 Essential (primary) hypertension | CPT/HCPCS: 99214 ==